=== PATIENT | female | born 1945 | race American Indian/Alaskan Native ===

== ENCOUNTER 2016-05-17 10:42 | Outpatient (CLI) | payer MEDICARE ==
--- NOTE | 2016-05-21 08:40 | PET Report ---
PET/CT:05/17/16 10:42:00 CLINICAL: Uterine cancer restaging. RADIOPHARMACEUTICAL: 15.3mCi F18-FDG. COMPARISON: 02/09/16 PET/CT TECHNIQUE- Following intravenous injection of F-18 FDG and an approximately 60 minute uptake period, CT and PET images from the mid skull to the upper thighs were acquired with the patient in the fasted state. No contrast was administered. The CT protocol used for this PET CT study is designed for attenuation correction and anatomic localization of PET abnormalities. This heavy equipment supervisor CT is not desired to produce and cannot replace, [id number] diagnostic CT scans with specific imaging protocols for different body parts and indications. Plasma glucose at the time of this test: 182g/dl. The standardized uptake values (SUV) are normalized to patient body weight and indicate the highest activity concentration (SUV max) in a given disease site. FINDINGS: Brain--Physiologic FDG uptake in the visualized regions of the brain. Neck--Physiologic FDG uptake . Chest--Physiologic FDG uptake in mediastinal blood pool and myocardium. Lungs--No abnormal uptake. No pulmonary nodule or mass. Pleura/pericardium--No abnormal uptake. Thoracic nodes--Increased number of FDG avid retrocaval pretracheal lymph nodes. The largest measures 2.0 x 1.7 cm with SUV 8.3 compared to 2.2 x 1.8 cm with SUV 7.5. The next largest measures 1.9 x 1.2 cm. A pretracheal lymph node is slightly smaller with an SUV of 3.0 compared to 6.5. Hepatobiliary--No abnormal uptake. Hepatic steatosis has improved and the liver now measures 32 Hounsfield units in density. Liver background SUV mean, as a reference for comparing FDG studies, is 4.4 compared to 4.0 on the last exam. No liver mass. Spleen--No abnormal uptake. Pancreas--No abnormal uptake. Adrenal Glands--No abnormal uptake. Kidneys/Ureters/Bladder--No abnormal uptake. Abdominopelvic Nodes--Previously described retroperitoneal para-aortic lymphadenopathy are small in size with lower lobe FDG levels but there are new FDG avid peripancreatic and riri hepatis lymph nodes. Peritoneum/Mesentery--No abnormal uptake. Pelvic organs--No abnormal uptake. Bones/Soft Tissues--No abnormal uptake. Other findings: Stable small pericardial effusion. IMPRESSION- 1. A mixed picture with a number of smaller mediastinal and retroperitoneal lymph nodes with lower SUV but also numerous new FDG avid lymph intra-abdominal nodes in the mesentery and riri hepatis.2. No evidence of pulmonary or hepatic metastasis.
== END 2016-05-17 10:43 | disposition home or self-care (01) ==
LOC: PET 10:42
DX: C54.9 Malignant neoplasm of corpus uteri, unspecified (principal)
CPT/HCPCS: 78815; 82962; A9552

== ENCOUNTER 2016-06-18 13:35 | Outpatient (CLI) | payer MEDICARE ==
[2016-06-18] MEDS ORDERED: FLUSH HEPARIN IV ONE (15:01)
--- NOTE | 2016-06-18 15:08 | Fluoroscopy Report ---
PORTAGRAM History: Breast cancer, malfunctioning port. Findings: Informed consent was obtained. Sterile technique was utilized. 20 fluoroscopic images were captured during injection of IV contrast through the left subclavian [id number]. There is no evidence for extravasation or fracture. The port tubing is intact. No fibrin sheath. Impression: Unremarkable portagram.
== END 2016-06-18 13:36 | disposition home or self-care (01) ==
LOC: FLUORO 13:35
DX: C50.912 Malignant neoplasm of unspecified site of left female breast (principal)
CPT/HCPCS: 36598; J1642; Q9967

== ENCOUNTER 2016-07-06 18:46 | Emergency (ER) | payer MEDICARE ==
[2016-07-06 20:05] LABS: Basophils % (Auto) 0.4 % (0.0-1.8); Eosinophils % (Auto) 0.1 % (0.0-4.3); Hematocrit 28.3 % (30.3-42.9); Hemoglobin 9.3 gm/dl (10.1-14.3); Mean Corpuscular HGB Conc 33 % (30-34); Mean Corpuscular Hemoglobin 34 pg (28-32); Mean Corpuscular Volume 103 fl (79-97); Platelet Count 182 K/mm3 (140-440); Red Blood Count 2.74 M/mm3 (3.65-5.03); Red Cell Distribution Width 15.1 % (13.2-15.2); White Blood Count 4.7 K/mm3 (4.5-11.0)
[2016-07-06] MEDS ORDERED: PERCOCET 5/325 PO ONE (22:18)
--- NOTE | 2016-07-06 22:19 | Emergency Department Report ---
ED Lower Extremity HPI - General Chief Complaint: Extremity Injury, Lower Stated Complaint: SWOLLEN R FOOT/COLORATION/X 2 WKS/STOMACH CANCER Time Seen by Provider: 07/06/16 22:11 Source: patient, family Mode of arrival: Wheelchair Limitations: Physical Limitation - History of Present Illness Initial Comments: 71-year-old female presents with right foot pain 2 weeks. She states is the lateral aspect of the foot that is tender. She describes edema as well. She denies any specific trauma that she recalls. She has been using a [employer] boot for support and states this helps her. [place] better. She does give a history of breast cancer as well as uterine cancer. She did have a recent PET scan staging done. There were mediastinal lymph node involvement. The metastases were noted however. Patient denies fevers. Complaint: foot injury -: week(s) (2) Severity: moderate Improves With: immobilization Worsens With: weight bearing, palpation Associated Symptoms: swelling. denies: numbness, tingling - Related Data Home Medications Medication Instructions Recorded Confirmed Last Taken Carvedilol 25 mg PO BID 04/23/13 04/25/16 01/19/16 05:00 Clonidine HCl 0.3 mg PO TID 04/23/13 04/25/16 01/19/16 05:00 Simvastatin 40 mg PO HS 04/23/13 04/25/16 01/18/16 Ascorbic Acid [Vitamin C] 500 mg PO DAILY 01/19/16 04/25/16 01/18/16 Oxycodone HCl/Acetaminophen 1 tab PO Q6HR PRN 01/19/16 04/25/16 2 Days Ago [Oxycodone-Acetaminophen 5-325] Previous Rx's Medication Instructions Recorded Last Taken Type Levofloxacin [Levaquin TAB] 500 mg PO QDAY #3 tablet 04/29/16 Unknown Rx oxyCODONE /ACETAMINOPHEN [Percocet 1 tab PO Q6HR PRN #20 tablet 07/06/16 Unknown Rx 5/325] Allergies Allergy/AdvReac Type Severity Reaction Status Date / Time No Known Allergies Allergy Verified 04/25/16 23:28 ED Review of Systems ROS: Stated complaint: SWOLLEN R FOOT/COLORATION/X 2 WKS/STOMACH CANCER Other details as noted in HPI Comment: All other systems reviewed and negative Constitutional: denies: chills, fever Eyes: denies: eye pain, eye discharge, vision change ENT: denies: ear pain, throat pain Respiratory: denies: cough, shortness of breath, wheezing Cardiovascular: denies: chest pain, palpitations Endocrine: no symptoms reported Gastrointestinal: abdominal pain. denies: nausea, diarrhea Genitourinary: denies: urgency, dysuria, discharge Musculoskeletal: joint swelling, arthralgia. denies: back pain Skin: denies: rash, lesions Neurological: denies: headache, weakness, paresthesias Psychiatric: denies: anxiety, depression Hematological/Lymphatic: denies: easy bleeding, easy bruising ED Past Medical Hx - Past Medical History Hx Hypertension: Yes ([facility] DX IN ) Hx Heart Attack/AMI: No Hx Congestive Heart Failure: Yes Hx Diabetes: Yes Hx of Cancer: Yes (Breast and Uterine) Hx Sickle Cell Disease: No Hx Kidney Stones: Yes Hx HIV: No - Surgical History Hx Breast Surgery: Yes (rt masectomy) Additional Surgical History: hyst, TL, port - Social History Smoking Status: Never Smoker Substance Use Type: None - Medications Home Medications: Home Medications Medication Instructions Recorded Confirmed Last Taken Type Carvedilol 25 mg PO BID 04/23/13 04/25/16 01/19/16 05:00 History Clonidine HCl 0.3 mg PO TID 04/23/13 04/25/16 01/19/16 05:00 History Simvastatin 40 mg PO HS 04/23/13 04/25/16 01/18/16 History Ascorbic Acid [Vitamin C] 500 mg PO DAILY 01/19/16 04/25/16 01/18/16 History Oxycodone HCl/Acetaminophen 1 tab PO Q6HR PRN 01/19/16 04/25/16 2 Days Ago History [Oxycodone-Acetaminophen 5-325] Levofloxacin [Levaquin TAB] 500 mg PO QDAY #3 tablet 04/29/16 Unknown Rx oxyCODONE /ACETAMINOPHEN [Percocet 1 tab PO Q6HR PRN #20 tablet 07/06/16 Unknown Rx 5/325] ED Physical Exam - General Limitations: Physical Limitation General appearance: alert, in no apparent distress - Head Head exam: Present: atraumatic, normocephalic, other (alopecia) - Eye Eye exam: Present: normal appearance - ENT ENT exam: Present: normal orophraynx, mucous membranes moist - Neck Neck exam: Present: normal inspection - Respiratory Respiratory exam: Present: normal lung sounds bilaterally. Absent: respiratory distress - Cardiovascular Cardiovascular Exam: Present: regular rate, normal rhythm. Absent: systolic murmur, diastolic murmur, rubs, gallop - GI/Abdominal GI/Abdominal exam: Present: soft, normal bowel sounds - Extremities Exam Extremities exam: Present: other (right foot with lateral aspect midportion tenderness and erythema. Exquisite tenderness on the dorsum of the foot. Minimal tenderness with plantar palpation. Patient is able to flex the toes without significant difficulty. No calcaneus tenderness is appreciated. No lymphangina noted. Good distal pedal pulses noted.) - Back Exam Back exam: Present: normal inspection - Neurological Exam Neurological exam: Present: alert, oriented X3 - Psychiatric Psychiatric exam: Present: normal affect, normal mood - Skin Skin exam: Present: warm, dry, intact, normal color. Absent: rash ED Course Vital Signs 07/06/16 07/06/16 07/06/16 19:19 22:59 23:04 Temperature 99.2 F 8.8 F L Pulse Rate 120 H 107 H Respiratory 20 16 18 Rate Blood Pressure 183/121 Blood Pressure 183/121 175/127 [Left] O2 Sat by Pulse 97 96 Oximetry 07/06/16 23:29 Temperature 98 F Pulse Rate 107 H Respiratory 18 Rate Blood Pressure Blood Pressure 159/102 [Left] O2 Sat by Pulse 98 Oximetry - Reevaluation(s) Reevaluation #1: 07/07/16 00:25 Presentation to me seems more gouty in nature. Patient has exquisite tenderness with even light touch. The erythematous is some mild [place] does not look angry or red. I have a low suspicion for a septic arthritis. Does not have any skin breakdown or anything as far as hematogenous spread source that I can see as well. I do feel a bit limited in this patient's care. She had recent acute kidney injury is to couple of weeks ago. I'm very hesitant to place her on NSAIDs for this reason. In addition she is currently on chemotherapy and I'm hesitant to place her on steroids and depress her immune system any further. I feel the best course of action for now his patients and pain management and symptomatic treatment as possible. We'll have her keep foot elevated as well as keeping boot for comfort as needed. I strongly suspect this is more rheumatologic in nature. ED Lower Extremity MDM - Lab Data Result diagrams: 07/06/16 19:45 - Radiology Data interpreted by me: Arthritic changes noted no acute fractures noted. Mild soft tissue swelling is noted. Critical care attestation.: If time is entered above; I have spent that time in minutes in the direct care of this critically ill patient, excluding procedure time. ED Disposition Clinical Impression: Foot pain, right Disposition: DISCHARGED TO HOME OR SELFCARE Is pt being admited?: No Does the pt Need Aspirin: No Condition: Stable Instructions: Arthralgia (ED) Additional Instructions: Keep foot elevated as possible. Limit walking. Prescriptions: oxyCODONE /ACETAMINOPHEN [Percocet 5/325] 1 tab PO Q6HR PRN #20 tablet PRN Reason: Pain Referrals: PRIMARY CARE, [Primary Care Provider] - 3-5 Days
[2016-07-06 23:29] VITALS: BP 159/102
--- NOTE | 2016-07-07 09:38 | XRay Report ---
RIGHT FOOT, 3 VIEWS History: Pain. Findings: There is mild nonspecific soft tissue swelling or edema. Bone mineralization is borderline. There are mild osteoarthritic changes in the midfoot. No fracture, erosive joint pathology, periostitis or bone lesion is appreciated. Impression: Nonspecific soft tissue swelling. Mild degenerative changes. No acute process appreciated.
== END 2016-07-06 23:30 | disposition home or self-care (01) ==
LOC: ED 18:46
DX: M79.671 Pain in right foot (principal); I10 Essential (primary) hypertension; E11.9 Type 2 diabetes mellitus without complications; I50.9 Heart failure, unspecified; Z87.19 Personal history of other diseases of the digestive system; Z98.86 Personal history of breast implant removal; Z85.3 Personal history of malignant neoplasm of breast; Z85.42 Personal history of malignant neoplasm of other parts of uterus; Z90.710 Acquired absence of both cervix and uterus; Z98.51 Tubal ligation status
CPT/HCPCS: 36415; 85025; 99284

== ENCOUNTER 2016-07-30 11:45 | Outpatient (CLI) | payer MEDICARE ==
--- NOTE | 2016-07-30 15:40 | Cat Scan Report ---
CT OF THE ABDOMEN AND PELVIS WITHOUT CONTRAST HISTORY: Endometrial cancer. TECHNIQUE: Helical CT without contrast. Sagittal and coronal reformatted images. FINDINGS: This exam is slightly limited without IV contrast. There are multiple enlarged lymph nodes in the riri hepatis, celiac axis, left para-aortic chain and aortocaval chain. These lymph nodes appear stable in number but decreased in size by approximately 25% since 01/07/16. No definite new enlarged lymph nodes are identified. Hysterectomy changes are noted. The unenhanced CT appearance of the liver, pancreas, spleen and adrenal glands are within normal limits. Hepatic steatosis has resolved. The right kidney is unremarkable. 4 cm cyst in the superior left kidney is unchanged. There are numerous small partially calcified gallstones within the gallbladder. No biliary dilatation or inflammation. Borderline to mild cardiomegaly is stable. The visualized lung bases are clear. IMPRESSION: There are multiple enlarged lymph nodes in the abdomen as outlined above which appear stable in number but decreased in size by approximately 25%, see above. Borderline to mild cardiomegaly, stable. Hepatic steatosis has resolved. Cholelithiasis.
== END 2016-07-30 11:46 | disposition home or self-care (01) ==
LOC: CT 11:45
DX: C54.1 Malignant neoplasm of endometrium (principal); K80.20 Calculus of gallbladder without cholecystitis without obstruction; N28.1 Cyst of kidney, acquired; R59.9 Enlarged lymph nodes, unspecified; Z90.710 Acquired absence of both cervix and uterus
CPT/HCPCS: 36415; 74176; 82565; 84520

== ENCOUNTER 2016-11-19 15:04 | Outpatient (CLI) | payer MEDICARE | END 2016-11-19 15:05 | disposition home or self-care (01) | LOC: LABHHL 15:04 | DX: C54.1 Malignant neoplasm of endometrium (principal); I11.0 Hypertensive heart disease with heart failure; I50.9 Heart failure, unspecified; E78.00 Pure hypercholesterolemia, unspecified; Z90.11 Acquired absence of right breast and nipple; Z85.3 Personal history of malignant neoplasm of breast; Z87.442 Personal history of urinary calculi; Z90.710 Acquired absence of both cervix and uterus | CPT/HCPCS: 88341; 88342 ==

== ENCOUNTER 2016-11-26 09:02 | Outpatient (CLI) | payer MEDICARE ==
--- NOTE | 2016-11-26 13:43 | Ultrasound Report ---
Complete abdominal ultrasound: Endometrial cancer. Images of the liver demonstrated slightly decreased through transmission. No focal lesion identified. The spleen is normal in size, echogenicity, and contour. The pancreas cannot be clearly distinguished. In the riri hepatis region there is an inhomogeneous and somewhat lobulated appearing echogenic mass measuring approximately 4.5 cm. There is shadowing from the gallbladder fundus obscuring detail. The gallbladder body and neck are relatively echolucent and the isaacs are not thickened and there is no pericholecystic fluid. The CBD diameter is 3.3 mm. There is a small volume of ascites. The right kidney length is 9.4 cm. The echo pattern is somewhat inhomogeneous but not otherwise remarkable. The left renal length is 10.2 cm and there is a 3.8 cm cyst in the mid kidney anteriorly. There is an 18 mm cyst posteriorly. The transverse diameter of the proximal abdominal aorta is [address] scan in July of 2016 demonstrated enlarged riri hepatis lymph nodes. The left renal cyst and gallstones were present. Impressions: 1. The riri hepatis mass may represent a new finding or worsening coalescent lymph nodes. 2. Cholelithiasis with no evidence of cholecystitis. 3. Stable left renal cysts.
== END 2016-11-26 09:03 | disposition home or self-care (01) ==
LOC: US 09:02
DX: C54.1 Malignant neoplasm of endometrium (principal); K80.20 Calculus of gallbladder without cholecystitis without obstruction; N28.1 Cyst of kidney, acquired; R18.8 Other ascites; R79.89 Other specified abnormal findings of blood chemistry; I11.0 Hypertensive heart disease with heart failure; I50.9 Heart failure, unspecified; E11.9 Type 2 diabetes mellitus without complications; Z87.891 Personal history of nicotine dependence
CPT/HCPCS: 76700